=== PATIENT | female | born 1980 | race Caucasian/White ===

== ENCOUNTER 2020-06-06 10:12 | Emergency (ER) | payer BC, OTHER ==
[2020-06-06 10:22] VITALS: BP 127/93; PULSE 97; RESP 18; TEMP 98.3
--- NOTE | 2020-06-06 10:56 | ED ---
Skin/Abscess/FB HPI - General Chief complaint: Needlestick/Exposure Stated complaint: IHS-needlestick Time Seen by Provider: 06/06/20 10:31 Source: patient Mode of arrival: ambulatory Limitations: no limitations - History of Present Illness Initial comments: Patient is a 39-year-old female presenting to the emergency Department with complaints of a needle stick injury. 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 There was some very mild bleeding, she did wash her hands immediately with soap and water. There is no active bleeding at this time. She has no further complaints. - Related Data Allergies Allergy/AdvReac Type Severity Reaction Status Date / Time Penicillins Allergy Anaphylaxis Verified 06/06/20 10:22 Review of Systems ROS Statement: Those systems with pertinent positive or pertinent negative responses have been documented in the HPI. ROS Other: All systems not noted in ROS Statement are negative. Past Medical History Past Medical History: No Reported History History of Any Multi-Drug Resistant Organisms: None Reported Past Surgical History: No Surgical Hx Reported Past Psychological History: No Psychological Hx Reported Smoking Status: Current every day smoker Past Alcohol Use History: Occasional Past Drug Use History: None Reported General Exam - General Exam Comments Initial Comments: GENERAL: Patient is well-developed and well-nourished. Patient is nontoxic and in no acute distress. HEAD: Atraumatic, normocephalic. EYES: Pupils equal round and reactive to light, extraocular movements intact, sclera anicteric, conjunctiva are normal. Eyelids were unremarkable. ENT: Nares patent, oropharynx clear without exudates. Moist mucous membranes. NECK: Normal range of motion, supple without lymphadenopathy or JVD. LUNGS: Unlabored respirations. Breath sounds clear to auscultation bilaterally and equal. No wheezes rales or rhonchi. HEART: Regular rate and rhythm without murmurs, rubs or gallops. ABDOMEN: Soft, nontender. : Deferred MUSCULOSKELETAL: Normal extremities with adequate strength and normal range of motion, no pitting or edema. No clubbing or cyanosis. NEUROLOGICAL: Patient is alert and oriented x 3. Symmetrical smile. Normal speech, normal gait. PSYCH: Normal mood, normal affect. SKIN: Warm, Dry, normal turgor, no rashes. Pin-sized needlestick injury noted on the left index finger. No active bleeding. Limitations: no limitations Course Vital Signs 06/06/20 10:19 Temperature 98.3 F Pulse Rate 97 Respiratory 18 Rate Blood Pressure 127/93 O2 Sat by Pulse 96 Oximetry Medical Decision Making - Medical Decision Making Patient is a 39-year-old female here with a needlestick injury to her left index finger. He did wash her hand immediately, no active bleeding. Blood work was obtained from the patient. Rapid HIV is negative. Patient declined HIV prophylactic treatment at this time. She can follow up with her PCP. She is stable for discharge. Case discussed with Dr. Valdez. Disposition Clinical Impression: Needle stick injury of finger of left hand Disposition: HOME SELF-CARE Condition: Stable Instructions (If sedation given, give patient instructions): Needle Stick Injuries (ED) Additional Instructions: Please return to the Emergency Department if symptoms worsen or any other concerns. Follow-up with your PCP. Is patient prescribed a controlled substance at d/c from ED?: No Referrals: None,Stated [Primary Care Provider] - 1-2 days Time of Disposition: 11:27
== END 2020-06-06 11:30 | disposition home or self-care (01) ==
LOC: EC 10:12
DX: S69.82XA Other specified injuries of left wrist, hand and finger(s), initial encounter (principal); F17.200 Nicotine dependence, unspecified, uncomplicated; W46.0XXA Contact with hypodermic needle, initial encounter
CPT/HCPCS: 99282

== ENCOUNTER → 2020-10-03 | Outpatient (CLI) | payer BC ==
--- NOTE | 2020-10-03 09:47 | US ---
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 follow up thyroid nodule GLAND SIZE: Right Lobe: 4.1 x 1.6 x 1.7 cm Overall Parenchyma: homogenous Left Lobe: 4.5 x 1.5 x 1.5 cm Overall Parenchyma: homogeneous Isthmus Thickness: 0.3 cm NODULES RIGHT: # of nodules measured on right: 0 LEFT: # of nodules measured on left: 1 1. 0.5 X 0.4 x 0.4 cm, mid, solid, hypoechoic nodule, which is wider than tall, with ill-defined ma rgins, without echogenic foci. Prior size: 0.4 x 0.4 x 0.4 cm ISTHMUS: # of nodules measured in the isthmus: Bilateral neck scanned, no evidence of lymphadenopathy. IMPRESSION: Subcentimeter thyroid nodule. 2017 ACR TI-RADS LEVEL: TR-RADS 4 - Moderately Suspicious: Follow if > 1 cm, FNA if > 1.5 cm *Highest TI-RADS level nodule reported
== END | disposition home or self-care (01) ==
LOC: RADUSWWP 09:07
PROVIDERS: ATTEND Internal Medicine Endocrinology, Diabetes & Metabolism
DX: E04.1 Nontoxic single thyroid nodule (principal)
CPT/HCPCS: 76536; 84443

== ENCOUNTER → 2022-03-13 | Outpatient (CLI) | payer BC ==
--- NOTE | 2022-03-14 08:48 | US ---
EXAMINATION TYPE: US thyroid st tissue head/neck DATE OF EXAM: 03/13/2022 COMPARISON: Thyroid ultrasound 10/03/2020 CLINICAL HISTORY: E04.1 NONTOXIC SINGLE THYROID NODULE. thy nodule GLAND SIZE: Right Lobe: 4.1 x 2.2 x 1.4 cm Overall Parenchyma: homogenous Left Lobe: 5.0 x 1.4 x 1.7 cm Overall Parenchyma: homogeneous Isthmus Thickness: 0.4 cm NODULES RIGHT: # of nodules measured on right: 0 LEFT: # of nodules measured on left: 1. 0.5 X 0.3 x 0.4 cm, mid Prior size: 0.5 x 0.4 x 0.4 cm TIRADS Score: 4 TIRADS Category 4: Moderately Suspicious Composition: Solid or almost completely solid (2 points). Echogenicity: Hypoechoic (2 points). Shape: Wider than tall (0 points). Margin: Smooth (0 points). Echogenic foci: None or large comet-tail artifacts (0 points) Recommendation: If >1.5cm: FNA; If >1cm: Follow up at 1,2, 3,5 years ISTHMUS: # of nodules measured in the isthmus: 0 Bilateral neck scanned, no evidence of lymphadenopathy. IMPRESSION: Left thyroid nodule that does not meet criteria for follow-up or tissue sampling by direct criteria. This is stable back to 2020 and likely benign.
== END | disposition home or self-care (01) ==
LOC: RADUSWWP 16:48
PROVIDERS: ATTEND Family Medicine
DX: E04.1 Nontoxic single thyroid nodule (principal)
CPT/HCPCS: 76536